=== PATIENT | male | born 1965 | race African-American/Black ===

== ENCOUNTER 2024-07-27 13:03 | Emergency (ER) | payer SELFPAY ==
[2024-07-27 13:13] VITALS: BP 119/74; PULSE 68; RESP 18; TEMP 98.2; BMI 24.3
[2024-07-27] MEDS ORDERED: ACETAMINOPHEN INJECTION 100 ML ONE (14:07)
[2024-07-27 14:29] LABS: BASO % 0.7 % (0-2.0); EOS % 0.4 % (0-4.5); HEMATOCRIT 46.7 % (35.4-49); HEMOGLOBIN 15.2 GM/dL (11.7-16.9); LYMPH % 25.5 % (8-40); MCH 29.9 pg (25.7-33.7); MCHC 32.6 g/dl (32.0-35.9); MEAN CELL VOLUME 91.6 fl (80-96); MEAN PLT VOLUME 7.8 fl (7.5-11.1); MONO % 5.3 % (3.8-10.2); NEUT % 68.1 % (42.8-82.8); PLATELET COUNT 203 10^3/uL (134-434); RDW 13.2 % (11.9-15.9)
[2024-07-27] MEDS: ACETAMINOPHEN 500 MG TABLET (FP) PO ONE (14:38)
[2024-07-27] MEDS: ACETAMINOPHEN 1000 MG/100 ML BAG IVPB ONE (14:38)
[2024-07-27 14:40] LABS: POTASSIUM 4.8 mmol/L (3.5-5.1)
[2024-07-27 14:42] LABS: CALCIUM 8.8 mg/dL (8.5-10.1)
[2024-07-27 14:43] LABS: BLOOD UREA NITROGEN 13.3 mg/dL (7-18)
[2024-07-27 14:46] LABS: CREATININE 1.4 mg/dL (0.55-1.3); INR 0.95 (0.83-1.09); PROTHROMBIN TIME (PATIENT) 10.7 SEC (9.7-13.0)
[2024-07-27 14:47] LABS: BILIRUBIN,TOTAL 0.5 mg/dL (0.2-1); TOT PROT 7.2 g/dl (6.4-8.2)
[2024-07-27 14:49] LABS: ACTIVATED PTT 21.7 SECONDS (25.2-36.5)
[2024-07-27] MEDS ORDERED: morphine SULFATE 4 MG/ML VIAL ONE (15:23)
[2024-07-27] MEDS: morphine CARPU-JECT 4 MG/1 ML DISP.SYRIN IVPUSH ONE (15:27)
[2024-07-27 15:53] LABS: PH,URINE 5.5 (5.0-8.0); URINE APPEARANCE CLEAR; URINE BILIRUBIN NEGATIVE (NEGATIVE); URINE COLOR YELLOW; URINE GLUCOSE (UA) NEGATIVE (NEGATIVE); URINE KETONE NEGATIVE (NEGATIVE); URINE LEUK ESTERASE NEGATIVE (NEGATIVE); URINE NITRITE NEGATIVE (NEGATIVE); URINE PROTEIN NEGATIVE (NEGATIVE); URINE UROBILINOGEN 0.2 mg/dL (0.2-1.0)
== END 2024-07-27 18:01 | disposition home or self-care (01) ==
LOC: JER 13:03
PROC: 3E033NZ Introduction of Analgesics, Hypnotics, Sedatives into Peripheral Vein, Percutaneous Approach (ICD-10-PCS; principal; 2024-07-27)
PROC: 3E033NZ Introduction of Analgesics, Hypnotics, Sedatives into Peripheral Vein, Percutaneous Approach (ICD-10-PCS; 2024-07-27)
DX: S00.81XA Abrasion of other part of head, initial encounter (principal); R10.11 Right upper quadrant pain; Y04.8XXA Assault by other bodily force, initial encounter
CPT/HCPCS: 36415; 70450-TC; 71045-TC-FY; 72125-TC; 72170-TC-FY; 74177-TC; 80053; 80307; 81003; 83605; 85025; 85610; 85730; 87086; 93005; 93010; 99285-25; J0131; Q9967